=== PATIENT | male | born 1995 | race Caucasian/White ===

== ENCOUNTER 2021-06-09 19:55 | Emergency (ER) | payer OTHER ==
[~2021-06-09] VITALS: Ht 182.9 cm; Wt 79.4 kg
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
--- NOTE | 2021-06-09 20:45 | NUR ---
EMT AT BEDSIDE FOR WOUND CARE
[2021-06-09] MEDS ORDERED: BACITRACIN ZINC OINT PACKET 1 EA PACKET TP ONE ×2 (20:52→21:00)
[2021-06-09] MEDS ORDERED: AMOX-430 PO (21:11)
[2021-06-09] MEDS ORDERED: SULF1TAB48 PO (21:11)
--- NOTE | 2021-06-09 21:20 | NUR ---
Patient discharged to home in stable condition. Written and verbal after care instructions given. Patient verbalizes understanding of instruction. Patient ambulatory with a steady gait
[2021-06-09 21:21] VITALS: BP 137/79
== END 2021-06-09 21:21 | disposition home or self-care (01) ==
LOC: ER 19:59
DX: T22.212A Burn of second degree of left forearm, initial encounter (principal); X19.XXXA Contact with other heat and hot substances, initial encounter; Y93.89 Activity, other specified; Y92.89 Other specified places as the place of occurrence of the external cause; Y99.8 Other external cause status

== ENCOUNTER 2023-06-14 19:35 | Emergency (ER) | payer OTHER ==
[~2023-06-14] VITALS: Ht 182.9 cm; Wt 86.2 kg
[~2023-06-14 19:35] MED LIST: AMOX-430 PO; SULF1TAB48 PO
[2023-06-14 20:22] VITALS: BP 131/68; TEMP 98; O2SAT 98
[2023-06-14] MEDS ORDERED: IBUP-1955 PO (20:52)
[2023-06-14] MEDS ORDERED: SULF1TAB48 PO (20:52)
[2023-06-14] MEDS ORDERED: CEPH500C2 PO (20:52)
== END 2023-06-14 21:30 | disposition home or self-care (01) ==
LOC: ER 19:40
DX: L03.011 Cellulitis of right finger (principal); L03.113 Cellulitis of right upper limb
CPT/HCPCS: 99283; A6403; A6407